=== PATIENT | male | born 1945 | race Caucasian/White ===

== ENCOUNTER 2019-06-10 11:34 | Inpatient (IN) | payer MEDICARE, OTHER ==
[~2019-06-10] VITALS: Ht 172.7 cm; Wt 83.2 kg
[2019-06-10 12:54] LABS: BASOPHILS # (AUTO) 0.1 X10'3 (0-0.2); BASOPHILS % (AUTO) 0.7 % (0-1); EOSINOPHILS # (AUTO) 0.2 X10'3 (0-0.9); EOSINOPHILS % (AUTO) 2.1 % (0-6); HEMATOCRIT 43.8 % (42.0-52.0); HEMOGLOBIN 14.8 g/dl (14.0-17.9); LYMPHOCYTES # (AUTO) 2.2 X10'3 (1.1-4.8); LYMPHOCYTES % (AUTO) 24.4 % (21-51); MEAN CORPUSCULAR HEMOGLOBIN 30.7 PG (27.0-31.0); MEAN CORPUSCULAR HGB CONC 33.8 g/dL (33.0-36.5); MEAN CORPUSCULAR VOLUME 90.9 FL (78-98); MEAN PLATELET VOLUME 7.5 FL (7.4-10.4); MONOCYTES # (AUTO) 0.5 X10'3 (0-0.9); MONOCYTES % (AUTO) 5.6 % (2-12); NEUTROPHILS # (AUTO) 6.2 X10'3 (1.8-7.7); NEUTROPHILS % (AUTO) 67.2 % (42-75); PLATELET COUNT 252 X10'3 (140-440); RED BLOOD COUNT 4.82 X10'6 (4.70-6.10); RED CELL DISTRIBUTION WIDTH 13.4 % (11.5-14.5); WHITE BLOOD COUNT 9.2 X10'3 (4.5-11.0)
[2019-06-10 13:04] LABS: ALANINE AMINOTRANSFERASE 21 U/L (12-78); ALKALINE PHOSPHATASE 95 IU/L (46-116); ANION GAP 9 (8-16); ASPARTATE AMINO TRANSFERASE 14 U/L (10-37); BILIRUBIN,TOTAL 0.2 MG/DL (0.1-1.0); BLOOD UREA NITROGEN 26 MG/DL (7-18); BUN/CREATININE RATIO 15.8 (5.4-32.0); CALCIUM 9.5 MG/DL (8.5-10.1); CHLORIDE 103 MMOL/L (99-107); CREATININE 1.65 MG/DL (0.60-1.10); GLUCOSE 247 MG/DL (70-104); POTASSIUM 4.1 MMOL/L (3.5-5.1); SODIUM 139 MMOL/L (135-145); TOTAL CARBON DIOXIDE 27.1 MMOL/L (24-32); eGFR 41 ML/MIN
[2019-06-10 13:12] LABS: MAGNESIUM 1.4 MG/DL (1.5-2.4)
[2019-06-10] MEDS ORDERED: enoxaparin 100mg/ml syringe SUBCUT ONE ×2 (13:40→13:50)
[2019-06-10] MEDS ORDERED: nitroGLYCERIN 1gm ointment UD TP ONE (13:40)
[2019-06-10] MEDS: normal saline 1000ml 1,000 ML IV SCH (13:57)
[2019-06-10] MEDS ORDERED: magnesium hydroxide 30ml (MOM) UD suspension PO PRN (14:00)
[2019-06-10] MEDS ORDERED: dextrose ORAL solution 15 GM/59 ML bottle PO PRN ×2 (14:00)
[2019-06-10] MEDS ORDERED: mag hydrox/Alum hydrox/simeth 30ml oral suspension PO PRN (14:00)
[2019-06-10] MEDS ORDERED: dextrose 50%-water 50ml dispensing syringe IV PRN ×2 (14:00)
[2019-06-10] MEDS ORDERED: MESSAGE TO PHARMACY PO ONE (14:00)
[2019-06-10] MEDS ORDERED: ondansetron/PF 4mg/2ml inj IV PRN (14:00)
[2019-06-10] MEDS ORDERED: HYDROcodone/acetaminophen 5mg/325mg tablet PO PRN (14:00)
[2019-06-10] MEDS ORDERED: HYDROcodone/acetaminophen 10/325mg tab PO PRN (14:00)
[2019-06-10] MEDS ORDERED: glucagon, human recombinant 1mg kit SUBCUT PRN (14:00)
[2019-06-10] MEDS ORDERED: acetaminophen 325mg tablet PO PRN (14:00)
[2019-06-10] MEDS ORDERED: morphine 2 MG/ML inj. syringe IV PRN ×2 (14:00)
[2019-06-10] MEDS ORDERED: ALOG12.52 PO (14:14)
[2019-06-10] MEDS ORDERED: CHLO25TA2 PO (14:14)
[2019-06-10] MEDS ORDERED: GLIP5TAB13 PO (14:14)
[2019-06-10] MEDS ORDERED: FLUT100D2 INH (14:14)
[2019-06-10] MEDS ORDERED: METF-438 PO (14:14)
[2019-06-10] MEDS ORDERED: LOSA50TA3 PO (14:14)
[2019-06-10] MEDS ORDERED: METF-436 PO (14:14)
[2019-06-10] MEDS ORDERED: ATOR20TA66 PO (14:14)
[2019-06-10] MEDS ORDERED: ZOLP5TAB8 PO (14:14)
[2019-06-10] MEDS ORDERED: SILD100T PO (14:14)
[2019-06-10] MEDS ORDERED: PANT-47 PO (14:14)
[2019-06-10 15:11] LABS: HEMOGLOBIN A1C 8.1 % (4.5-6.2)
--- NOTE | 2019-06-10 17:45 | NUR ---
Pt has been transferred from ED9 to [facility] 3601K @ 2028, pt was transferred via gurney with one RN, VSS 97.8 64 12 97 RA 121/64, pain 0/10, pt tucked into bed all needs met at this time, will continue to monitor.
--- NOTE | 2019-06-10 18:14 | NUR ---
Problems reprioritized. Patient report given, questions answered & plan of care reviewed with SOLE Menjivar.
--- NOTE | 2019-06-10 18:16 | NUR ---
Patient in room PCU 3026. I have received report from SOLE Wong and had the opportunity to ask questions and assume patient care.
[2019-06-10 19:00] VITALS: BP 123/70
--- NOTE | 2019-06-10 19:11 | NUR ---
glucometer check performed via downtime override, see form in physical chart Addendum: 06/10/19 at 1911 by Yisle Morales RN Amended: Links added.
[2019-06-10] MEDS: budesonide 0.5mg/2ml UD nebule IH SCH (20:00)
[2019-06-10] MEDS ORDERED: chlorthalidone 25mg tablet PO SCH ×2 (20:00→20:22)
[2019-06-10] MEDS: acetaminophen 325mg tablet PO PRN (20:27)
[2019-06-10] MEDS: metFORMIN 500mg tablet PO SCH ×2 (20:28→21:00)
[2019-06-10] MEDS: enoxaparin 80mg/0.8ml syringe SUBCUT SCH (20:41)
[2019-06-10] MEDS: zolpidem 5mg tablet PO SCH (20:54)
[2019-06-10] MEDS: insulin glargine (Lantus) pen - multi-dose SQ SCH (21:00)
[2019-06-10 23:00] VITALS: BP 106/65
[2019-06-11 01:20] LABS: ALBUMIN 3.2 G/DL (3.4-5.0); ANION GAP 8 (8-16); BLOOD UREA NITROGEN 24 MG/DL (7-18); BUN/CREATININE RATIO 15.6 (5.4-32.0); CALCIUM 8.2 MG/DL (8.5-10.1); CHLORIDE 107 MMOL/L (99-107); CHOL/HDL RATIO 4.2 (0.00-4.99); CHOLESTEROL 143 MG/DL (0-200); CREATININE 1.54 MG/DL (0.60-1.10); GLUCOSE 224 MG/DL (70-104); HDL CHOLESTEROL 34 MG/DL (35-60); LDL CHOLESTEROL 89 MG/DL (50-100); POTASSIUM 3.7 MMOL/L (3.5-5.1); SODIUM 141 MMOL/L (135-145); TOTAL CARBON DIOXIDE 26.4 MMOL/L (24-32); TRIGLYCERIDES 198 MG/DL (20-135); eGFR 45 ML/MIN
[2019-06-11 03:00] VITALS: BP 116/66
[2019-06-11] MEDS: acetaminophen 325mg tablet PO PRN ×2 (04:15→12:04)
[2019-06-11] MEDS: normal saline 1000ml 1,000 ML IV SCH (05:01)
[2019-06-11 05:18] LABS: BASOPHILS % (AUTO) 0.5 % (0-1); EOSINOPHILS # (AUTO) 0.2 X10'3 (0-0.9); EOSINOPHILS % (AUTO) 2.8 % (0-6); HEMATOCRIT 37.7 % (42.0-52.0); LYMPHOCYTES # (AUTO) 1.9 X10'3 (1.1-4.8); LYMPHOCYTES % (AUTO) 23.7 % (21-51); MEAN CORPUSCULAR HEMOGLOBIN 30.8 PG (27.0-31.0); MEAN CORPUSCULAR HGB CONC 34.4 g/dL (33.0-36.5); MEAN CORPUSCULAR VOLUME 89.4 FL (78-98); MEAN PLATELET VOLUME 7.6 FL (7.4-10.4); MONOCYTES # (AUTO) 0.7 X10'3 (0-0.9); MONOCYTES % (AUTO) 8.1 % (2-12); NEUTROPHILS # (AUTO) 5.2 X10'3 (1.8-7.7); NEUTROPHILS % (AUTO) 64.9 % (42-75); PLATELET COUNT 208 X10'3 (140-440); RED BLOOD COUNT 4.22 X10'6 (4.70-6.10); RED CELL DISTRIBUTION WIDTH 13.2 % (11.5-14.5); WHITE BLOOD COUNT 8.1 X10'3 (4.5-11.0)
[2019-06-11 06:00] VITALS: BP 113/65
--- NOTE | 2019-06-11 06:15 | NUR ---
Patient in room PCU 3026. I have received report from SOLE Menjivar and had the opportunity to ask questions and assume patient care.
--- NOTE | 2019-06-11 06:30 | NUR ---
Problems reprioritized. Patient report given, questions answered & plan of care reviewed with SOLE Hernández.
[2019-06-11] MEDS: linagliptin 5mg tablet PO SCH (08:36)
[2019-06-11] MEDS: losartan 50mg tablet PO SCH (08:36)
[2019-06-11] MEDS: atorvastatin 20mg tablet PO SCH (08:36)
[2019-06-11] MEDS: enoxaparin 80mg/0.8ml syringe SUBCUT SCH ×2 (08:36→19:12)
[2019-06-11] MEDS: pantoprazole 40mg Tablet.DR PO SCH (08:43)
[2019-06-11] MEDS: budesonide 0.5mg/2ml UD nebule IH SCH ×2 (10:30→20:35)
[2019-06-11 11:00] VITALS: BP 136/75
--- NOTE | 2019-06-11 11:22 | NUR ---
DM consult: Pt with A1c 8.1 seen at bedside. Pt reports he last saw his PCP 3-4 months ago however does not currently have a f/u visit scheduled. Pt reports taking his DM meds per rx and states he checks his BG levels once a week with morning results of 135-170, however will check it more often if he isn't feeling well. Pt provided with written and verbal DM ed with referral to outpatient DM class. Discussed meal planning and patterns, consistent CHO intake, protein intake, and checking BG levels more frequently. All of patient's questions were answered at this time, RD contact information provided. Pt admit with chest pain, currently on a heart healthy CHO controlled diet documented with 0% PO intake at dinner last night. Pt reports a low appetite since admit and with no food preferences, likes, or dislikes at this time. Pt denies food allergies or difficulty chewing/swallowing. Pt reports some diarrhea, discussed BRAT diet. LB 06/10. Will continue to follow. Recommendations: 1) Continue heart healthy CHO controlled diet 2) Monitor need for ONS 3) Wt per rx Addendum: 06/11/19 at [address] Amended: Links added.
[2019-06-11] MEDS: aspirin 81mg tablet.DR PO SCH (12:03)
[2019-06-11] MEDS: insulin Lispro (HumaLOG) vial - multi-dose SQ SCH (13:05)
[2019-06-11 15:00] VITALS: BP 146/79
--- NOTE | 2019-06-11 15:09 | NUR ---
Problems re-prioritized. Outcomes reviewed and updated.
--- NOTE | 2019-06-11 15:57 | NUR ---
Problems reprioritized. Outcomes reviewed and updated.
--- NOTE | 2019-06-11 16:35 | NUR ---
Report called to ACCE unit.
--- NOTE | 2019-06-11 16:46 | NUR ---
Rrort called to ACCE unit to SOLE Orr.
--- NOTE | 2019-06-11 16:48 | NUR ---
Patient taken to ACCE unit per WC by SOLE Forman.
--- NOTE | 2019-06-11 16:53 | NUR ---
Patient arrived to [facility] Unit. He was orientated to the room and how to use the call light. My assessment concurs with the morning assessment performed on PCU. Patient currently has no chest pain. Will continue to monitor for any changes.
[2019-06-11 18:00] VITALS: BP 148/79
--- NOTE | 2019-06-11 18:10 | NUR ---
Problems reprioritized. Patient report given, questions answered & plan of care reviewed with Mercedes WHIPPLE.
--- NOTE | 2019-06-11 18:23 | NUR ---
Patient in room MED 310. I have received report from Rosibel WHIPPLE and had the opportunity to ask questions and assume patient care.
[2019-06-11] MEDS: zolpidem 5mg tablet PO SCH (21:49)
[2019-06-11] MEDS: chlorthalidone 25mg tablet PO SCH (21:50)
[2019-06-11 22:00] VITALS: BP 137/74
[2019-06-11] MEDS: insulin glargine (Lantus) pen - multi-dose SQ SCH (23:05)
[2019-06-12] VITALS (12 sets, daily range): BP systolic 121–166; BP diastolic 72–91
[2019-06-12 05:45] LABS: BASOPHILS % (AUTO) 0.5 % (0-1); EOSINOPHILS # (AUTO) 0.2 X10'3 (0-0.9); EOSINOPHILS % (AUTO) 3.1 % (0-6); HEMATOCRIT 40.3 % (42.0-52.0); HEMOGLOBIN 13.6 g/dl (14.0-17.9); LYMPHOCYTES # (AUTO) 2.1 X10'3 (1.1-4.8); LYMPHOCYTES % (AUTO) 26.8 % (21-51); MEAN CORPUSCULAR HEMOGLOBIN 30.3 PG (27.0-31.0); MEAN CORPUSCULAR HGB CONC 33.8 g/dL (33.0-36.5); MEAN CORPUSCULAR VOLUME 89.6 FL (78-98); MEAN PLATELET VOLUME 7.5 FL (7.4-10.4); MONOCYTES # (AUTO) 0.7 X10'3 (0-0.9); NEUTROPHILS # (AUTO) 4.7 X10'3 (1.8-7.7); NEUTROPHILS % (AUTO) 60.6 % (42-75); PLATELET COUNT 218 X10'3 (140-440); RED CELL DISTRIBUTION WIDTH 13.7 % (11.5-14.5); WHITE BLOOD COUNT 7.7 X10'3 (4.5-11.0)
[2019-06-12 05:49] LABS: ALBUMIN 3.3 G/DL (3.4-5.0); ANION GAP 8 (8-16); BLOOD UREA NITROGEN 21 MG/DL (7-18); BUN/CREATININE RATIO 15.4 (5.4-32.0); CALCIUM 8.2 MG/DL (8.5-10.1); CHLORIDE 105 MMOL/L (99-107); CREATININE 1.36 MG/DL (0.60-1.10); GLUCOSE 178 MG/DL (70-104); POTASSIUM 3.5 MMOL/L (3.5-5.1); SODIUM 140 MMOL/L (135-145); TOTAL CARBON DIOXIDE 27.3 MMOL/L (24-32); eGFR 52 ML/MIN
--- NOTE | 2019-06-12 06:21 | NUR ---
Problems reprioritized. Patient report given, questions answered & plan of care reviewed with Lyndsey/Olga RNs.
--- NOTE | 2019-06-12 06:32 | NUR ---
Patient in room MED 310. I have received report from Mercedes WHIPPLE and had the opportunity to ask questions and assume patient care.
[2019-06-12] MEDS: enoxaparin 80mg/0.8ml syringe SUBCUT SCH (08:00)
[2019-06-12] MEDS: budesonide 0.5mg/2ml UD nebule IH SCH ×2 (08:27→21:14)
[2019-06-12 08:53] LABS: MAGNESIUM 1.4 MG/DL (1.5-2.4)
[2019-06-12] MEDS: linagliptin 5mg tablet PO SCH (08:54)
[2019-06-12] MEDS: atorvastatin 20mg tablet PO SCH (08:54)
[2019-06-12] MEDS: losartan 50mg tablet PO SCH (08:54)
[2019-06-12] MEDS: normal saline 1000ml 1,000 ML IV SCH ×2 (08:54→21:20)
[2019-06-12] MEDS: pantoprazole 40mg Tablet.DR PO SCH (08:54)
[2019-06-12] MEDS: aspirin 81mg tablet.DR PO SCH (08:55)
[2019-06-12] MEDS: chlorthalidone 25mg tablet PO SCH ×2 (08:55→20:51)
[2019-06-12] MEDS: insulin Lispro (HumaLOG) vial - multi-dose SQ SCH ×2 (09:08→13:27)
[2019-06-12] MEDS ORDERED: potassium CL 10mEq/100ml bag 100 ML IV PRN (16:35)
[2019-06-12] MEDS ORDERED: magnesium 2GM in 50ml NS 50 ML IV PRN (16:35)
[2019-06-12] MEDS ORDERED: potassium Cl 20 mEq SR tablet PO PRN ×2 (16:35)
[2019-06-12] MEDS ORDERED: magnesium 4gm in 100ml NS 100 ML IV PRN (16:35)
[2019-06-12] MEDS: magnesium Cl slow-release 64mg tablet PO PRN ×2 (16:59→20:51)
[2019-06-12] MEDS ORDERED: iohexol 350MG/ML 100ml bottle IV ONE ×2 (17:13→17:55)
[2019-06-12] MEDS ORDERED: LIDOcaine 1% (10mg/ml)w/preservative injection 20ml MDV ONE (17:13)
[2019-06-12] MEDS ORDERED: heparin 1,000unit/ml 10ml vial 10 ML ONE (17:13)
[2019-06-12] MEDS ORDERED: midazolam 2 mg/2 ml injection ONE (17:27)
[2019-06-12] MEDS ORDERED: fentaNYL/PF 50MCG/1 ML 2ML syringe ONE (17:28)
[2019-06-12] MEDS ORDERED: iohexol 350 MG/ML 50ML vial IV ONE (17:55)
--- NOTE | 2019-06-12 18:00 | NUR ---
Patient in room MED 310. I have received report from from SOLE Solorio and had the opportunity to ask questions and assume patient care.
[2019-06-12] MEDS ORDERED: ticagrelor 90mg tablet ONE (18:11)
--- NOTE | 2019-06-12 18:30 | NUR ---
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 Post-op VS initiated.
[2019-06-12] MEDS ORDERED: proCHLORperazine 10 MG/2 ml inj IV PRN (18:55)
[2019-06-12] MEDS ORDERED: nitroGLYCERIN 0.4mg SUBLingual tab SL PRN (18:55)
[2019-06-12] MEDS ORDERED: HYDROcodone/acetaminophen 5mg/325mg tablet PO PRN (18:55)
[2019-06-12] MEDS ORDERED: ondansetron/PF 4mg/2ml inj IV PRN (18:55)
[2019-06-12] MEDS ORDERED: OXAZEpam 15mg capsule PO PRN (18:55)
[2019-06-12] MEDS ORDERED: acetaminophen 325mg tablet PO PRN (18:55)
[2019-06-12] MEDS ORDERED: HYDROcodone/acetaminophen 10/325mg tab PO PRN (18:55)
[2019-06-12] MEDS: zolpidem 5mg tablet PO SCH (20:50)
[2019-06-12] MEDS: insulin glargine (Lantus) pen - multi-dose SQ SCH (21:15)
[2019-06-13 02:00] VITALS: BP 144/75
[2019-06-13 05:49] LABS: BASOPHILS # (AUTO) 0.1 X10'3 (0-0.2); BASOPHILS % (AUTO) 0.6 % (0-1); EOSINOPHILS # (AUTO) 0.2 X10'3 (0-0.9); EOSINOPHILS % (AUTO) 2.3 % (0-6); HEMATOCRIT 40.6 % (42.0-52.0); HEMOGLOBIN 14.1 g/dl (14.0-17.9); LYMPHOCYTES # (AUTO) 2.3 X10'3 (1.1-4.8); LYMPHOCYTES % (AUTO) 25.8 % (21-51); MEAN CORPUSCULAR HEMOGLOBIN 30.8 PG (27.0-31.0); MEAN CORPUSCULAR HGB CONC 34.6 g/dL (33.0-36.5); MEAN CORPUSCULAR VOLUME 89.1 FL (78-98); MEAN PLATELET VOLUME 6.9 FL (7.4-10.4); MONOCYTES # (AUTO) 0.8 X10'3 (0-0.9); MONOCYTES % (AUTO) 8.9 % (2-12); NEUTROPHILS # (AUTO) 5.5 X10'3 (1.8-7.7); NEUTROPHILS % (AUTO) 62.4 % (42-75); PLATELET COUNT 237 X10'3 (140-440); RED BLOOD COUNT 4.56 X10'6 (4.70-6.10); RED CELL DISTRIBUTION WIDTH 13.4 % (11.5-14.5); WHITE BLOOD COUNT 8.9 X10'3 (4.5-11.0)
[2019-06-13 05:53] LABS: ALBUMIN 3.4 G/DL (3.4-5.0); ANION GAP 10 (8-16); BLOOD UREA NITROGEN 20 MG/DL (7-18); BUN/CREATININE RATIO 14.5 (5.4-32.0); CALCIUM 8.1 MG/DL (8.5-10.1); CHLORIDE 106 MMOL/L (99-107); CREATININE 1.38 MG/DL (0.60-1.10); GLUCOSE 148 MG/DL (70-104); POTASSIUM 3.4 MMOL/L (3.5-5.1); SODIUM 140 MMOL/L (135-145); TOTAL CARBON DIOXIDE 24.5 MMOL/L (24-32); eGFR 51 ML/MIN
[2019-06-13 06:00] VITALS: BP 152/81
--- NOTE | 2019-06-13 06:00 | NUR ---
Problems reprioritized. Patient report given, questions answered & plan of care reviewed with SOLE Brar.
--- NOTE | 2019-06-13 06:34 | NUR ---
Patient in room MED 310. I have received report from LEILA and had the opportunity to ask questions and assume patient care.
[2019-06-13] MEDS: budesonide 0.5mg/2ml UD nebule IH SCH (07:09)
[2019-06-13 07:39] LABS: MAGNESIUM 1.8 MG/DL (1.5-2.4)
[2019-06-13] MEDS ORDERED: ticagrelor 90mg tablet PO SCH (08:00)
[2019-06-13] MEDS: linagliptin 5mg tablet PO SCH (08:29)
[2019-06-13] MEDS: pantoprazole 40mg Tablet.DR PO SCH (08:29)
[2019-06-13] MEDS: aspirin 81mg tablet.DR PO SCH (08:29)
[2019-06-13] MEDS: losartan 50mg tablet PO SCH (08:30)
[2019-06-13] MEDS: chlorthalidone 25mg tablet PO SCH (08:31)
[2019-06-13] MEDS: atorvastatin 20mg tablet PO SCH (08:32)
[2019-06-13] MEDS: insulin Lispro (HumaLOG) vial - multi-dose SQ SCH ×2 (08:39→13:07)
[2019-06-13] MEDS ORDERED: ASPI-1071 PO (10:18)
[2019-06-13] MEDS ORDERED: TICA90TA PO (10:18)
[2019-06-13] MEDS: normal saline 1000ml 1,000 ML IV SCH (10:40)
[2019-06-13 11:00] VITALS: BP 170/86
--- NOTE | 2019-06-13 13:10 | NUR ---
Patient was discharged in stable condition by Dr Farley. All discharge paperwork and instructions were reviewed with the patient. He had no further questions at this time. His IV was removed with the catheter tip intact, there was minimal bleeding, and clean gauze and tape were applied. His new prescriptions were delivered via [facility] bedside delivery. Patient declined a wheelchair, and ambulated himself out of the hospital.
--- NOTE | 2019-06-13 13:27 | NUR ---
[facility] documentation: I have reviewed and agree with all interventions, assessments performed and documented by Inga WHIPPLE. [facility] Medication Administration: For this medication-pass time frame, all medication were reviewed, dispensed, administered and documented per hospital policy by Inga WHIPPLE.
== END 2019-06-13 13:26 | disposition home or self-care (01) | DRG 246 ==
LOC: ER 11:34 → PCU 3S 17:30 → CMPBEDREQ 19:54 → MED 3N 06-11 16:40
PROVIDERS: ADMIT Hospitalist; ATTEND Hospitalist
PROC: 4A023N7 Measurement of Cardiac Sampling and Pressure, Left Heart, Percutaneous Approach (ICD-10-PCS; principal; 2019-06-12)
PROC: 027034Z Dilation of Coronary Artery, One Artery with Drug-eluting Intraluminal Device, Percutaneous Approach (ICD-10-PCS; 2019-06-12)
PROC: B2111ZZ Fluoroscopy of Multiple Coronary Arteries using Low Osmolar Contrast (ICD-10-PCS; 2019-06-12)
PROC: B2151ZZ Fluoroscopy of Left Heart using Low Osmolar Contrast (ICD-10-PCS; 2019-06-12)
PROC: B2131ZZ Fluoroscopy of Multiple Coronary Artery Bypass Grafts using Low Osmolar Contrast (ICD-10-PCS; 2019-06-12)
PROC: B2181ZZ Fluoroscopy of Left Internal Mammary Bypass Graft using Low Osmolar Contrast (ICD-10-PCS; 2019-06-12)
DX: T82.857A Stenosis of other cardiac prosthetic devices, implants and grafts, initial encounter (principal); I21.4 Non-ST elevation (NSTEMI) myocardial infarction; E11.22 Type 2 diabetes mellitus with diabetic chronic kidney disease; E78.00 Pure hypercholesterolemia, unspecified; E78.5 Hyperlipidemia, unspecified; M32.9 Systemic lupus erythematosus, unspecified; Y71.3 Surgical instruments, materials and cardiovascular devices (including sutures) associated with adverse incidents; I12.9 Hypertensive chronic kidney disease with stage 1 through stage 4 chronic kidney disease, or unspecified chronic kidney disease; N18.9 Chronic kidney disease, unspecified; M19.90 Unspecified osteoarthritis, unspecified site; B19.20 Unspecified viral hepatitis C without hepatic coma; Z95.1 Presence of aortocoronary bypass graft; Z79.899 Other long term (current) drug therapy; Z79.84 Long term (current) use of oral hypoglycemic drugs; Z90.49 Acquired absence of other specified parts of digestive tract; Y92.89 Other specified places as the place of occurrence of the external cause
CPT/HCPCS: 93306; 93459; 96360; 96361; 96372; 99285; C9604; 36415; 71045; 80048; 80053; 80061; 82948; 83036; 83735; 83880; 84484; 85025; 87081; 93005; 94640; 94760; A4620; A6258; C1725; C1760; C1769; C1874; G0378; J1644; J1650; J1815; J2001; J2250; J3010; J7030; J7626; Q9967